=== PATIENT | female | born 1935 | race Caucasian/White ===

== ENCOUNTER 2016-11-08 12:16 | Outpatient (CLI) | payer MEDICARE, OTHER ==
--- NOTE | 2016-11-08 15:49 | Diagnostic Imaging Report ---
JACKI MARIA [facility] [address] [facility] [address] [place] [address]. [id number] Report Submission Date: Nov 08, 2016 3:20:07 PM PRODUCT SAFETY TECHNICIAN Patient Study Name: NAKIA JEAN BAPTISTE Date: Nov 08, 2016 12:31:05 PM PRODUCT SAFETY TECHNICIAN Modality Type: CR Gender: F Description: CHEST : 37 Institution: [facility] Physician: JACKI MARIA Bilateral ribs Clinical history multiple falls rib fractures Technique AP oblique cone down radiographs of both ribs Findings: No rib fractures identified. There is no pneumothorax or hemothorax. Bone density appears normal. Disc or atelectasis is present in the left lung base. There is aortic arch calcification Impression: No acute rib pathology in either set of ribs Electronically signed on Nov 08, 2016 3:20:07 PM PRODUCT SAFETY TECHNICIAN by: August CUEVA
--- NOTE | 2016-11-08 15:49 | Diagnostic Imaging Report ---
JACKI MARIA - LUKE [facility] [address] [address] [facility] [address] [place] [address]. [id number] Report Submission Date: Nov 08, 2016 3:23:15 PM HEAD OF STORE OPERATIONS Patient Study Name: NAKIA JEAN BAPTISTE Date: Nov 08, 2016 12:48:05 PM HEAD OF STORE OPERATIONS Modality Type: CR Gender: F Description: SPINE : 37 Institution: [facility] Physician: JACKI MARIA - LUKE Lumbar spine 3 views Clinical history pain Technique AP lateral coned down lumbosacral junction Findings: There is disc space narrowing at multiple levels. 5 lumbar vertebrae are present. Vacuum cleft formation is present and multiple levels. Anterior subluxation of L4 on L5 is present. There is aortoiliac vascular calcification. Impression: Lumbar spondylosis Prominent vascular calcification Negative for fracture of the lumbar spine Electronically signed on Nov 08, 2016 3:23:15 PM HEAD OF STORE OPERATIONS by: August CUEVA
--- NOTE | 2016-11-08 15:50 | Diagnostic Imaging Report ---
JACKI MARIA - LUKE [facility] [address] [facility] [address] [place] [address]. [id number] Report Submission Date: Nov 08, 2016 3:21:40 PM APRON WORKER Patient Study Name: NAKIA JEAN BAPTISTE Date: Nov 08, 2016 12:46:11 PM APRON WORKER Modality Type: CR Gender: F Description: SPINE : 37 Institution: [facility] Physician: JACKI MARIA - LUKE Thoracic spine Clinical history pain Technique AP lateral swimmer's Findings: There is compression fracture of T10 Spondylosis present and multiple levels. No other fractures are seen. There is no paravertebral mass. Impression: Compression fracture T10 Thoracic spondylosis Electronically signed on Nov 08, 2016 3:21:40 PM APRON WORKER by: August CUEVA
== END 2016-11-08 12:27 ==
LOC: RAD 12:16
PROVIDERS: ATTEND Family Medicine
DX: M54.9 Dorsalgia, unspecified (principal); R07.89 Other chest pain
CPT/HCPCS: 71110; 72072; 72100

== ENCOUNTER 2017-07-16 22:07 | Emergency (ER) | payer MEDICARE, OTHER ==
--- NOTE | 2017-07-16 22:26 | ED Physician Documentation ---
General Adult - HISTORIAN Historian: patient - HPI Stated Complaint: high blood pressure Chief Complaint: General Adult Onset: hours Timing: still present Severity: moderate Further Comments: yes (Pt is an 82 yo female who had markedly elevated blood pressure at home. Pt felt dizzy and so checked her pressure. On presentation BP = 250/96. 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 Pt has not had chest pain, n/v. Pt states that she has been a little more short of breath than usual lately. Pt has not had headache or ankle swelling. Pt notes increased urinary frequency.) - ROS CONST: other (lightheaded) EYES/ENT: none CVS/RESP: shortness of breath GI/: none MS/SKIN/LYMPH: none NEURO/PSYCH: dizziness - PAST HX Past History: other (HTN, Hypothyroidism, HLD, GERD, Osteoarthritis) Surgeries/Procedures: cholecystectomy, other (appendectomy, ortho surgery, carotid surgery) Allergies/Adverse Reactions: Allergies Allergy/AdvReac Type Severity Reaction Status Date / Time tramadol Allergy Intermediate Hives Verified 07/16/17 23:24 codeine AdvReac Nausea/Vomi Verified 07/16/17 23:24 ting erythromycin base AdvReac Nausea/Vomi Verified 07/16/17 23:24 ting Home Medications: Ambulatory Orders Medication Instructions Recorded Famotidine 40 mg PO DAILY u2 09/01/14 Levothyroxine Sodium 75 mcg PO DAILY u2 09/01/14 Meloxicam 15 mg PO DAILY u2 09/01/14 Multivit-Min/FA/Lycopene/Lut 1 each PO DAILY u2 09/01/14 [Centrum Silver Tablet] Quinapril HCl 40 mg PO BID u2 09/01/14 Levofloxacin [Levaquin] 250 mg PO DAILY #7 tablet 07/16/17 - SOCIAL HX Smoking History: non-smoker Alcohol Use: none Drug Use: none - FAMILY HX Family History: No - REVIEWED ASSESSMENTS Nursing Assessment Reviewed: Yes Vitals Reviewed: Yes Progress - Progress Progress: Initial BP = 250/96 Metoprolol 5 mg IV x 1 BP improved and remained improved after several hours BP 159/60 improvement in bp is likely due to 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 Will change quinipril dosing to bid and f/u with pcp. Rx abx for UTI. Rx Levaquin 250 mg. Take one tablet by mouth once daily for 7 days. - EKG/XRAY/CT EKG: NSR (HR=81; Normal EKG.) XRAY: chest (no acute process.) General Adult Physical Exam - PHYSICAL EXAM GENERAL APPEARANCE: mild distress EENT: pharynx normal NECK: normal inspection, supple RESPIRATORY: no resp distress, chest non-tender, breath sounds normal CVS: reg rate & rhythm, heart sounds normal ABDOMEN: soft, no organomegaly, normal bowel sounds BACK: normal inspection, no CVA tenderness SKIN: warm/dry, normal color EXTREMITIES: non-tender, normal range of motion, no evidence of injury, no edema NEURO: oriented X3, CN's nml as tested, motor nml, sensation nml Discharge Clincal Impression: HTN (hypertension) Qualifiers: Hypertension type: unspecified Qualified Code(s): I10 - Essential (primary) hypertension UTI (urinary tract infection) Qualifiers: Urinary tract infection type: site unspecified Hematuria presence: without hematuria Qualified Code(s): N39.0 - Urinary tract infection, site not specified Prescriptions: Levofloxacin [Levaquin] 250 mg PO DAILY #7 tablet Referrals: Gutierrez Chau MD [Primary Care Provider] - 2 Days Condition: Good Disposition: 01 HOME, SELF-CARE Decision to Admit: NO Decision Time: 23:49
[2017-07-16] MEDS ORDERED: METOPROLOL TARTRATE 5 MG/5 ML VIAL IVP ONE (22:31)
[2017-07-16 22:43] LABS: BASOPHILS % 0.4 (0.0-1.5); EOSINOPHILS % 3.7 % (0.0-6.8); MEAN CORPUSCULAR HEMOGLOBIN 30.8 pg (28.0-34.0); MEAN CORPUSCULAR VOLUME 92.7 fl (80.0-100.0); MONOCYTES % 6.1 % (0.0-11.0); NEUTROPHILS # 3.7 # k/uL (1.4-7.7)
[2017-07-16] MEDS ORDERED: NITROGLYCERIN 2% 1GM OINT PACKET...G. TD ONE (22:46)
[2017-07-16 23:07] LABS: eGFR (African) > 60; eGFR (Non-African) > 60
[2017-07-16] MEDS ORDERED: METOPROLOL SUCCINATE 50 MG TAB.ER.24H PO ONE (23:14)
[2017-07-16] MEDS ORDERED: LEVOFLOXACIN 500 MG TABLET PO ONE (23:46)
[2017-07-17 00:52] VITALS: BP 159/60
--- NOTE | 2017-07-17 05:41 | Diagnostic Imaging Report ---
ROBINA GARNER [facility] [address] [facility] [address] [place] [address]. [id number] Report Submission Date: Jul 16, 2017 11:13:45 PM BLIND ESCORT Patient Study Name: NAKIA JEAN BAPTISTE Date: Jul 16, 2017 10:54:56 PM BLIND ESCORT Modality Type: CR Gender: F Description: CHEST : 37 Institution: [facility] Physician: ROBINA GARNER Chest - one-view Clinical history: Shortness of breath. Hypotension. Findings: Examination of the chest single AP upright view with comparison to examination of 11/08/2016 demonstrates lungs to be clear. Cardiac silhouette is stable and the aorta is atherosclerotic. Degenerative changes are seen in the shoulders. Monitor leads superimpose the chest. Impression: 1. Aortic atherosclerosis. 2. No active disease. Electronically signed on Jul 16, 2017 11:13:45 PM BLIND ESCORT by: Bhupinder CUEVA
[2017-07-17 07:08] LABS: APPEARANCE,URINE CLOUDY (CLEAR); COLOR,URINE YELLOW (YELLOW); OCCULT BLOOD,URINE TRACE-INTACT (NEGATIVE)
[2017-07-17 07:09] LABS: UROBILINOGEN URINE 0.2 Eu (0.2-1.0)
== END 2017-07-17 00:04 | disposition home or self-care (01) ==
LOC: ED 22:07
DX: N39.0 Urinary tract infection, site not specified (principal); I10 Essential (primary) hypertension
CPT/HCPCS: 71010; 80053; 81002; 82550; 82553; 83880; 84484; 85025; 87086; 93005; J3490; 87186; 96374; 99283; S1016

== ENCOUNTER 2017-07-21 22:29 | Emergency (ER) | payer MEDICARE, OTHER ==
[2017-07-21] MEDS ORDERED: CloNIDine HCL 0.1 MG TABLET PO ONE (23:00)
--- NOTE | 2017-07-21 23:52 | ED Physician Documentation ---
General Adult - HISTORIAN Historian: patient - HPI Stated Complaint: htn Chief Complaint: General Adult Additional Information: high blood pressure Onset: days ago (7) Timing: still present Severity: moderate Further Comments: no - ROS CONST: no problems EYES/ENT: none CVS/RESP: none GI/: none MS/SKIN/LYMPH: none NEURO/PSYCH: tingling - PAST HX Past History: hypertension Surgeries/Procedures: other (see nurses notes) Immunizations: referred to PCP Allergies/Adverse Reactions: Allergies Allergy/AdvReac Type Severity Reaction Status Date / Time tramadol Allergy Intermediate Hives Verified 07/21/17 22:38 codeine AdvReac Nausea/Vomi Verified 07/21/17 22:38 ting erythromycin base AdvReac Nausea/Vomi Verified 07/21/17 22:38 ting Home Medications: Ambulatory Orders Medication Instructions Recorded Famotidine 40 mg PO DAILY u2 09/01/14 Levothyroxine Sodium 75 mcg PO DAILY u2 09/01/14 Meloxicam 15 mg PO DAILY u2 09/01/14 Multivit-Min/FA/Lycopene/Lut 1 each PO DAILY u2 09/01/14 [Centrum Silver Tablet] Quinapril HCl 40 mg PO BID u2 09/01/14 Levofloxacin [Levaquin] 250 mg PO DAILY #7 tablet 07/16/17 - SOCIAL HX Smoking History: non-smoker Alcohol Use: none Drug Use: none - FAMILY HX Family History: No - VITAL SIGNS Vital Signs: Vital Signs Temp Pulse Resp BP Pulse Ox 159/60 07/17/17 00:46 - REVIEWED ASSESSMENTS Nursing Assessment Reviewed: Yes Vitals Reviewed: Yes Progress - Results/Orders Results/Orders: no testing ordered - Progress Progress: pt. given clonidine 0.1 mg p.o. n er, left with bp 0f 130/72, no symptoms Critical Care Note - Critical Care Note Total Time (mins): 0 ED Results Lab/Radiology - Lab Results Lab Results: no testing ordered - Radiology Radiology Impressions: none ordered - Orders Orders: ED Orders Category Date Time Status CloNIDine HCL [Catapress] Med 07/21/17 23:00 Discontinued 0.1 mg PO NOW ONE General Adult Physical Exam - PHYSICAL EXAM GENERAL APPEARANCE: no distress EENT: eye inspection normal, ENT inspection normal, pharynx normal, no signs of dehydration, MARLEE, no nystagmus, TM's nml NECK: normal inspection, thyroid normal, supple RESPIRATORY: no resp distress, chest non-tender, breath sounds normal CVS: reg rate & rhythm, heart sounds normal, equal pulses, no murmur ABDOMEN: soft, no organomegaly, normal bowel sounds BACK: normal inspection, no CVA tenderness SKIN: warm/dry, normal color EXTREMITIES: non-tender, normal range of motion, no evidence of injury, no edema NEURO: oriented X3, CN's nml as tested, motor nml, sensation nml, mood/affect nml, cognition normal Discharge Clincal Impression: Uncontrolled hypertension Referrals: Gutierrez Chau MD [Primary Care Provider] - 2 Days Comments: Discharged home with prescription for Clonidine 0.1 mg p.o. q hs, #14 Condition: Stable Disposition: 01 HOME, SELF-CARE Decision to Admit: NO Decision Time: 23:51
[2017-07-22 00:48] VITALS: BP 134/64
== END 2017-07-22 00:24 | disposition home or self-care (01) ==
LOC: ED 22:29
DX: I10 Essential (primary) hypertension (principal)
CPT/HCPCS: 99283

== ENCOUNTER 2017-07-27 21:26 | Observation (INO) | payer MEDICARE, OTHER ==
--- NOTE | 2017-07-27 21:46 | ED Physician Documentation ---
General Adult - HISTORIAN Historian: patient - HPI Chief Complaint: General Adult Additional Information: Patient has been having some problems with her BP over the last 3 weeks. Prior to that time she was taking Quinapril 40mg BID. Patient has been in the ED for elevated BP on Jul 16 and today. She was started on clinidine 0.1mg at bedtime which has helped some. She Has been followed by Dr Chau. Was recently started on HCTZ 25mg daily and sertraline. Patient states that recently her BP has been running bout 150 systolic. She denies any chest pain/ pressure. Galvez not had any swelling in her legs. Has been having some mild SOB at time. No orthopnic symptoms noted. Timing: still present - ROS CONST: no problems EYES/ENT: none CVS/RESP: none GI/: none NEURO/PSYCH: other (feels flushed). denies: headache - PAST HX Past History: hypertension Other History: other (hypothyroidism) Surgeries/Procedures: cholecystectomy, other (bladder incontenence surgery, bilateral TKR, left carotidendarterectomy, cholecystectomy) Allergies/Adverse Reactions: Allergies Allergy/AdvReac Type Severity Reaction Status Date / Time tramadol Allergy Intermediate Hives Verified 07/27/17 22:13 codeine AdvReac Nausea/Vomi Verified 07/27/17 22:13 ting erythromycin base AdvReac Nausea/Vomi Verified 07/27/17 22:13 ting Home Medications: Ambulatory Orders Medication Instructions Recorded Famotidine 40 mg PO DAILY u2 09/01/14 Levothyroxine Sodium 75 mcg PO DAILY u2 09/01/14 Meloxicam 15 mg PO DAILY u2 09/01/14 Multivit-Min/FA/Lycopene/Lut 1 each PO DAILY u2 09/01/14 [Centrum Silver Tablet] Quinapril HCl 40 mg PO BID u2 09/01/14 CloNIDine HCL [Catapress] 0.1 mg PO HS 07/27/17 Hydrochlorothiazide 25 mg PO D 07/27/17 Sertraline HCl [Zoloft] 50 mg PO DAILY 07/27/17 - SOCIAL HX Smoking History: quit greater than 1 year (51yo og quit) Alcohol Use: none Drug Use: none - FAMILY HX Family History: No - VITAL SIGNS Vital Signs: Vital Signs Temp Pulse Resp BP Pulse Ox 134/64 07/22/17 00:45 - REVIEWED ASSESSMENTS Nursing Assessment Reviewed: Yes Vitals Reviewed: Yes Progress - Progress Progress: 23:18 Patient seem to be doing better with systolic dropping into the 150 then it went back up again. D Dimer is elevated. Concerned that patient might have PE but creatinine is to high to do CT scan. Patient is probably dehydrated some. Creatinine about 5 days ago was 1.0. Will admit observation for hydration and then plan to get CT scan done to r/o PE. General Adult Physical Exam - PHYSICAL EXAM GENERAL APPEARANCE: mild distress EENT: eye inspection normal, ENT inspection normal, pharynx normal NECK: normal inspection, thyroid normal, supple RESPIRATORY: no resp distress, chest non-tender, breath sounds normal. No: wheezes, rales, rhonchi CVS: reg rate & rhythm, heart sounds normal, equal pulses, no murmur, no gallop ABDOMEN: soft, no organomegaly, normal bowel sounds, no abdominal bruit, no distension, non-tender SKIN: warm/dry, other (flushed facial) EXTREMITIES: non-tender NEURO: oriented X3, CN's nml as tested, cognition normal Discharge Clincal Impression: Accelerated hypertension Condition: Stable Disposition: ADMITTED INPATIENT Decision to Admit: [id number] Date of Decison to Admit: 07/27/17 Decision Time: 23:40
[2017-07-27] MEDS ORDERED: PATIENT OWN MED 1 EACH EACH PO ONE ×2 (21:49→23:04)
[2017-07-27 22:18] LABS: BASOPHILS % 0.4 (0.0-1.5); EOSINOPHILS % 2.9 % (0.0-6.8); MEAN CORPUSCULAR HEMOGLOBIN 30.7 pg (28.0-34.0); MEAN CORPUSCULAR VOLUME 91.8 fl (80.0-100.0); MONOCYTES % 6.3 % (0.0-11.0); NEUTROPHILS # 4.1 # k/uL (1.4-7.7)
[2017-07-27 22:33] LABS: eGFR (African) > 60; eGFR (Non-African) 38
[2017-07-27] MEDS: 0.9 % SODIUM CHLORIDE 1,000 ML IV SCH (23:30)
[2017-07-28] MEDS ORDERED: ENOXAPARIN SODIUM 100 MG/ML DISP.SYRIN SQ ONE (00:11)
[2017-07-28] MEDS ORDERED: amLODIPine BESYLATE 5 MG TABLET PO ONE ×2 (00:15→13:16)
[2017-07-28 02:05] VITALS: BMI 36.1
[2017-07-28] MEDS: LEVOTHYROXINE SODIUM 25 MCG TABLET PO SCH ×2 (02:10→06:28)
[2017-07-28 06:17] LABS: APPEARANCE,URINE CLEAR (CLEAR); COLOR,URINE YELLOW (YELLOW); OCCULT BLOOD,URINE NEGATIVE (NEGATIVE); PH URINE 5.5 (5.0 - 8.0); UROBILINOGEN URINE 0.2 Eu (0.2-1.0)
[2017-07-28] MEDS: PANTOPRAZOLE SODIUM 40 MG TABLET PO SCH (06:28)
[2017-07-28] MEDS: QUINAPRIL HCL 20 MG TABLET PO SCH ×2 (06:32→19:39)
[2017-07-28 07:53] LABS: eGFR (African) > 60; eGFR (Non-African) > 60
--- NOTE | 2017-07-28 09:14 | Inpatient Progress Note ---
Subjective - Required Recertification Statement I anticipate X number of days because-include discharge plan: 1 - Review of Systems Events since last encounter: Sravanthi is feeling a little better today, however he blood pressure is still elevated. She is not having any chest pain and denies any history of coronary disease. Her troponin is negative. I spoke to Dr Munson about her, and he recommended a CT scan of the chest due to her elevated D Dimer. General: Fatigue. Denies: Chills, Night Sweats HEENT: Denies: Head Aches, Visual Changes Pulmonary: Dyspnea. Denies: Pleuritic Chest Pain Cardiovascular: Denies: Chest Pain, Palpitations, Orthopnea Gastrointestinal: Denies: Nausea, Vomiting Genitourinary: Denies: Dysuria Musculoskeletal: Denies: Neck Pain, Shoulder Pain Neurological: Weakness Objective - Exam Vitals and I&O: Vital Signs Temp 97.9 F 07/28/17 08:10 Pulse 68 07/28/17 08:10 Resp 18 07/28/17 08:10 BP 178/84 07/28/17 08:10 Pulse Ox 94 07/28/17 08:10 Intake & Output 07/27/17 07/27/17 07/28/17 11:59 23:59 11:59 Intake Total 600 Balance 600 Weight 86.636 kg Intake: Oral 600 Other: Voiding Method Toilet # Voids 1 General: Alert, Oriented to Person, Oriented to Place, Oriented to Time, Cooperative HEENT: Atraumatic, PERRLA, EOMI Neck: Supple, No JVD Lungs: Clear to auscultation, Normal air movement, Speaks full Sentences. No: Respiratory Distress, Wheezes Cardiovascular: Regular rate, Normal S1 Abdomen: Normal bowel sounds, Soft, No tenderness Extremities: No clubbing, No cyanosis Skin: Normal Neurological: Normal speech Psych/Mental Status: Mental status NL - Results Results: Laboratory Results WBC 7.40 K/ul (4.00-12.00) 07/27/17 22:10 RBC 3.92 M/ul (3.90-5.20) 07/27/17 22:10 Hgb 12.0 g/dL (12.0-16.0) 07/27/17 22:10 Hct 36.0 % (34.5-46.5) 07/27/17 22:10 MCV 91.8 fl (80.0-100.0) 07/27/17 22:10 MCH 30.7 pg (28.0-34.0) 07/27/17 22:10 MCHC 33.4 g/dL (30.0-36.0) 07/27/17 22:10 RDW 12.3 % (11.3-14.3) 07/27/17 22:10 Plt Count 273 K/mm3 (130-400) 07/27/17 22:10 Neut % (Auto) 56.0 % (39.0-79.0) 07/27/17 22:10 Lymph % (Auto) 31.9 % (16.0-50.0) 07/27/17 22:10 [place] % (Auto) 6.3 % (0.0-11.0) 07/27/17 22:10 Eos % (Auto) 2.9 % (0.0-6.8) 07/27/17 22:10 Baso % (Auto) 0.4 (0.0-1.5) 07/27/17 22:10 Neut # (Auto) 4.1 # k/uL (1.4-7.7) 07/27/17 22:10 Lymph # (Auto) 2.4 # k/uL (0.6-4.0) 07/27/17 22:10 [place] # (Auto) 0.5 # k/uL (0.0-0.9) 07/27/17 22:10 Eos # (Auto) 0.2 # k/uL (0.0-0.6) 07/27/17 22:10 Baso # (Auto) 0.0 # k/uL (0.0-0.5) 07/27/17 22:10 Reactive Lymphs % 2.5 % (0.0-5.0) 07/27/17 22:10 Reactive Lymphs # 0.2 # k/uL (0.0-0.8) 07/27/17 22:10 D-Dimer 1848 ng/mL (6.0-682) H 07/27/17 22:10 Sodium 138 mmol/L (136-145) 07/28/17 07:15 Potassium 3.5 mmol/L (3.5-5.1) 07/28/17 07:15 Chloride 104 mmol/L (98-107) 07/28/17 07:15 Carbon Dioxide 28 mmol/L (22-30) 07/28/17 07:15 BUN 23 mg/dL (7-17) H 07/28/17 07:15 Creatinine 1.10 mg/dL (0.52-1.04) H 07/28/17 07:15 Estimated Creat Clear 64 07/28/17 07:15 Est GFR ( Amer) > 60 (60-) 07/28/17 07:15 Est GFR (Non-Af Amer) > 60 (60-) 07/28/17 07:15 Glucose 93 mg/dL (74-106) 07/28/17 07:15 Calcium 8.6 mg/dL (8.4-10.2) 07/28/17 07:15 Total Bilirubin < 0.1 mg/dL (0.2-1.3) L 07/27/17 22:10 AST 24 U/L (15-46) 07/27/17 22:10 ALT 31 U/L (13-69) 07/27/17 22:10 Alkaline Phosphatase 92 U/L (38-126) 07/27/17 22:10 Troponin I < 0.03 ng/mL (0.03-0.06) L 07/27/17 22:10 Total Protein 7.2 g/dL (6.3-8.2) 07/27/17 22:10 Albumin 3.8 g/dL (3.5-5.0) 07/27/17 22:10 Urine Color Yellow (YELLOW) 07/27/17 23:30 Urine Appearance Clear (CLEAR) 07/27/17 23:30 Urine pH 5.5 (5.0 - 8.0) 07/27/17 23:30 Ur Specific [place] 1.015 (1.010-1.030) 07/27/17 23:30 Urine Protein Negative mg/dL (NEGATIVE) 07/27/17 23:30 Urine Ketones Negative mg/dL (NEGATIVE) 07/27/17 23:30 Urine Occult Blood Negative (NEGATIVE) 07/27/17 23:30 Urine Nitrite Negative (NEGATIVE) 07/27/17 23:30 Urine Bilirubin Negative (NEGATIVE) 07/27/17 23:30 Urine Urobilinogen 0.2 Eu (0.2-1.0) 07/27/17 23:30 Ur Leukocyte Esterase Trace (NEGATIVE) H 07/27/17 23:30 Urine Glucose Negative mg/dL (NEGATIVE) 07/27/17 23:30 Assessment/Plan - Assessment/Plan (1) Accelerated hypertension Status: Acute Current Visit: Yes Assessment: Continue quinapril and HCTZ (2) D-dimer, elevated Status: Acute Current Visit: Yes Assessment: CT scan of chest with contrast (labs reviewed and creatinine is now 1.1)
[2017-07-28] MEDS: SERTRALINE HCL 50 MG TABLET PO SCH (09:24)
[2017-07-28] MEDS: HYDROCHLOROTHIAZIDE 25 MG TABLET PO SCH (09:24)
[2017-07-28] MEDS ORDERED: amLODIPine BESYLATE 5 MG TABLET ONE (13:39)
--- NOTE | 2017-07-28 16:28 | Diagnostic Imaging Report ---
[facility]/MED SURG [facility] [address] [facility] [address] [address] Report Submission Date: Jul 28, 2017 9:56:16 AM LIME VAT TENDER Patient Study Name: NAKIA JEAN BAPTISTE Date: Jul 28, 2017 9:38:35 AM LIME VAT TENDER Modality Type: CT\SR Gender: F Description: CT ANGIOGRAPHY CHEST 7 : 37 Institution: [facility] Physician: [facility] WING/MED SURG CT chest with contrast PE protocol. History: HYPERTENSION, ELEVATED DDIMER Technique: Transaxial computed tomography images of the chest were obtained following the uneventful administration contrast according to CT PE protocol. Coronal and sagittal 3D mip images were obtained as part of the examination. Findings: The heart size is normal. The pulmonary arteries are adequately opacified and fail to demonstrate pulmonary embolism. The aorta is of normal course and caliber without evidence of aneurysm or dissection. There is mild atherosclerosis of the aorta . There is mild dependent atelectasis present within the lung base with focal nodular opacity in the superior segment of the right lower lobe measuring 1.7 cm . The no pleural effusion or pneumothorax identified. Limited views the upper abdomen are unremarkable. Degenerative present thoracic spine. Impression: 1. No evidence of acute pulmonary embolism. 2. Mild aortic atherosclerosis. 3. 1.7 cm nodular density in the superior segment of the right lower lobe, correlation with previous imaging is recommended if available otherwise consider followup to document stability or resolution. Electronically signed on Jul 28, 2017 9:56:16 AM LIME VAT TENDER by: Dheeraj CUEVA
[2017-07-28] MEDS: 0.9 % SODIUM CHLORIDE 1,000 ML IV SCH (19:39)
[2017-07-28] MEDS ORDERED: SIMVASTATIN 20 MG TABLET PO SCH (21:00)
[2017-07-28] MEDS ORDERED: hydrALAZINE HCL 20 MG/1 ML IM ONE (21:25)
[2017-07-28] MEDS ORDERED: hydrALAZINE HCL 20 MG/1 ML ONE (21:29)
[2017-07-28] MEDS ORDERED: HYDRALAZINE HCL 25 MG TABLET PO ONE (21:29)
[2017-07-28] MEDS ORDERED: SALINE FLUSH 10 ML DISP.SYRIN IVF ONE (21:30)
[2017-07-28] MEDS: HYDRALAZINE HCL 25 MG TABLET PO SCH (21:43)
[2017-07-29] MEDS ORDERED: amLODIPine BESYLATE 5 MG TABLET ONE (00:50)
[2017-07-29] MEDS ORDERED: HYDRALAZINE HCL 25 MG TABLET PO ONE (00:50)
[2017-07-29] MEDS: 0.9 % SODIUM CHLORIDE 1,000 ML IV SCH (04:53)
[2017-07-29] MEDS: PANTOPRAZOLE SODIUM 40 MG TABLET PO SCH (06:02)
[2017-07-29] MEDS: LEVOTHYROXINE SODIUM 25 MCG TABLET PO SCH (06:02)
[2017-07-29] MEDS ORDERED: amLODIPine BESYLATE 5 MG TABLET PO SCH (09:00)
[2017-07-29] MEDS: HYDROCHLOROTHIAZIDE 25 MG TABLET PO SCH (09:33)
[2017-07-29] MEDS: HYDRALAZINE HCL 25 MG TABLET PO SCH ×2 (09:34→13:17)
[2017-07-29] MEDS: QUINAPRIL HCL 20 MG TABLET PO SCH (09:34)
[2017-07-29] MEDS: SERTRALINE HCL 50 MG TABLET PO SCH (09:34)
[2017-07-29 14:02] VITALS: BP 190/87
--- NOTE | 2017-07-31 11:41 | Discharge Summary ---
DATE OF ADMISSION: July 28, 2017 DATE OF DISCHARGE: July 29, 2017 DIAGNOSES ON THIS HOSPITALIZATION: 1. Accelerated hypertension. 2. Right lower lobe mass. 3. Elevated D-dimer. SUMMARIZATION OF ADMISSION HISTORY AND PHYSICAL: This is an 82-year-old female who was seen in the emergency department multiple times over the last few days because of elevated blood pressures. She came back in because her blood pressure continued to be elevated and she was seen by Dr. Munson and he admitted her. HOSPITAL COURSE: She was admitted and initially, I added amlodipine, which failed to control her blood pressure very well, so I added hydralazine. She had improved but not optimal control of her blood pressure at that point. Because of her elevated D-dimer, we did do a CT of the chest with contrast to rule out a pulmonary embolism and there was an incidental finding of a solitary mass in the right lower lobe on its superior border. We did fax a copy of this CT scan to Dr. Chau's office and I will discuss it with him also on Monday. She was discharged to home then. MEDICATIONS ON DISCHARGE: 1. Quinapril 40 mg p.o. b.i.d., which she has been on for quite a long time, with the addition of amlodipine. 2. Amlodipine 10 mg p.o. daily. 3. Hydralazine 25 mg p.o. b.i.d. 4. Hydrochlorothiazide 25 mg p.o. daily, which had been started by Dr. Chau also. 5. She did resume her Zoloft 50 mg daily. 6. Levothyroxine 75 mcg daily. 7. Pantoprazole 40 mg p.o. daily. DISCHARGE INSTRUCTIONS: She will follow up on Monday morning with Dr. Chau at 9:00 a.m. cc: [facility]
== END 2017-07-29 13:30 | disposition home or self-care (01) ==
LOC: ED 21:26 → SOUTH 07-28 00:06
PROVIDERS: ADMIT Family Medicine; ATTEND Family Medicine
DX: I10 Essential (primary) hypertension (principal); R79.1 Abnormal coagulation profile
CPT/HCPCS: 36415; 71260; 80048; 80053; 81002; 84484; 85025; 85379; 96360; 96372; 96374; 99284; G0378; J0360; J1650; J7030; 99217; 99219; Q9967; S1016

== ENCOUNTER 2017-11-15 10:32 | Outpatient (CLI) | payer MEDICARE, OTHER ==
[2017-11-15 11:14] LABS: eGFR (African) 43; eGFR (Non-African) 35
== END 2017-11-15 10:44 ==
LOC: LAB 10:32
PROVIDERS: ATTEND Internal Medicine Cardiovascular Disease
DX: E78.00 Pure hypercholesterolemia, unspecified (principal); I10 Essential (primary) hypertension
CPT/HCPCS: 36415; 80048

== ENCOUNTER 2017-11-22 15:59 | Outpatient (CLI) | payer MEDICARE, OTHER ==
--- NOTE | 2017-11-22 17:59 | Diagnostic Imaging Report ---
Name: NAKIA JEAN BAPTISTE ~~ ~~ : 37 ~~ Acc #: [id number]~ ~ DOS: Nov 22, 2017 4:16:13 PM CDT ~~ Mod: DX ~~ Desc: CHEST 1 of 1 ADAMA MAKI~ [facility] [address] [facility].[address] [address] ~ ~ ~ ~ Report Submission Date: Nov 22, 2017 5:12:04 PM CDT Patient ~ Study Name: NAKIA JEAN BAPTISTE ~ Date: Nov 22, 2017 4:16:13 PM CDT ~ Modality Type: DX Gender: F ~ Description: CHEST : 37 ~ Institution: [facility] Physician: ADAMA MAKI ~ ~ ~ Examination: PA and lateral chest. History: Evaluate lung burris. Ongoing shortness of breath (Hx) Comparison exam: None available for direct review. Findings: PA lateral chest demonstrate a normal cardiac and mediastinal silhouette. Vascular calcifications involving the aortic arch. Mildly prominent interstitial pattern. Blunting of the left costophrenic margin. Articular degenerative changes. Impression: Mildly chronic interstitial changes with left costophrenic margin blunting. Given reported history, consider obtaining high-resolution CT chest to further evaluate if clinically warranted. ~ Electronically signed on Nov 22, 2017 5:12:04 PM CDT by: Roberto Carlos CUEVA
== END 2017-11-22 16:00 ==
LOC: RAD 15:59
PROVIDERS: ATTEND Internal Medicine Cardiovascular Disease
DX: I10 Essential (primary) hypertension (principal); R06.02 Shortness of breath; I11.9 Hypertensive heart disease without heart failure
CPT/HCPCS: 71046